=== PATIENT | female | born 1990 | race Caucasian/White ===

== ENCOUNTER → 2016-05-18 | Outpatient (CLI) | payer BC ==
[~2016-05-18] MED LIST: ALBUAER2 INH; BUDE1SUS; CETI10TA10 PO; NUTR-218; OMEG12006; OXYM0.0592 NAE; PREN1TAB29; RHNAQIN
== END | disposition home or self-care (01) ==
LOC: C.LABSPEC 13:35
PROVIDERS: ATTEND Obstetrics & Gynecology
DX: Z34.03 Encounter for supervision of normal first pregnancy, third trimester (principal)

== ENCOUNTER 2016-06-20 18:57 | Inpatient (IN) | payer BC ==
[~2016-06-20] VITALS: Ht 172.7 cm; Wt 81.7 kg
[~2016-06-20 18:57] MED LIST changes: -NUTR-218; -OMEG12006; -RHNAQIN
[2016-06-20] MEDS ORDERED: LACTATED RINGER'S 1000ML 1,000 ML IV PRN (19:37)
[2016-06-20] MEDS ORDERED: ALBUTEROL HFA 8 GM INHALER INH PRN (19:45)
[2016-06-20 20:08] LABS: HEMATOCRIT 39.6 % (37-47); MEAN CELL VOLUME 90.4 fL (80-100); MEAN CORPUSCULAR HEMOGLOBIN 32.9 pg (25-34); MEAN CORPUSCULAR HGB CONC 36.4 g/dl (32-36); MEAN PLATELET VOLUME 10.6 fL (7.4-10.4); PLATELET COUNT 133 K/uL (130-400); RED BLOOD COUNT 4.38 M/uL (4.2-5.4); WHITE BLOOD COUNT 15.12 K/uL (4.8-10.8)
[2016-06-20] MEDS ORDERED: RHNAQIN (20:19)
[2016-06-20] MEDS ORDERED: OMEG12006 (20:19)
[2016-06-20] MEDS ORDERED: NUTR-218 (20:20)
[2016-06-20 20:21] VITALS: Ht 172.7 cm; Wt 81.7 kg
[2016-06-20] MEDS: CETIRIZINE HCL 10 MG TAB PO SCH (22:28)
[2016-06-21] VITALS (8 sets, daily range): BP systolic 101–124; BP diastolic 62–78; PULSE 62–93; TEMP 36.1–36.9; O2SAT 97–100
[2016-06-21] MEDS ORDERED: LACTATED RINGER'S 1000ML 500 ML IV PRN ×2 (00:06→04:11)
[2016-06-21] MEDS ORDERED: OXYTOCIN 30 UNITS/500ML NSS IV PRN ×2 (00:15→08:15)
[2016-06-21] MEDS: LACTATED RINGER'S 1000ML 1,000 ML IV SCH ×2 (00:35→04:25)
[2016-06-21] MEDS ORDERED: BUPIVACAINE 0.25% 30 ML VIAL ONE (03:26)
[2016-06-21] MEDS ORDERED: FENTANYL CITRATE INJ 50 MCG/1 ML 2 ML VIAL ONE (03:27)
[2016-06-21] MEDS ORDERED: FENTANYL 2MCG/ML ROPIV 1.25MG/ML 100ML BAG EPI ONE (03:27)
[2016-06-21] MEDS ORDERED: EpHEDrine SULFATE INJ 50 MG/ML AMP ONE (03:27)
[2016-06-21] MEDS ORDERED: NALBUPHINE HCL INJ 10 MG/ML AMP IV PRN (04:15)
[2016-06-21] MEDS ORDERED: FENTANYL 2MCG/ML ROPIV 1.25MG/ML 100ML BAG EPI PRN (04:15)
[2016-06-21] MEDS ORDERED: DiphenhydrAMINE HCL 50 MG/ML VIAL IV PRN (04:15)
[2016-06-21] MEDS ORDERED: NALOXONE HCL INJ 0.4 MG/1 ML VIAL/CARP IV PRN (04:15)
[2016-06-21] MEDS ORDERED: EpHEDrine SULFATE INJ 50 MG/ML AMP IV PRN (04:15)
[2016-06-21] MEDS ORDERED: ONDANSETRON INJ 2 MG/ML 2 ML VIAL IV PRN (04:15)
[2016-06-21] MEDS ORDERED: IBUPROFEN 600 MG TAB PO PRN (08:15)
[2016-06-21] MEDS ORDERED: LANOLIN OINT EXT PRN ×2 (08:15)
[2016-06-21] MEDS ORDERED: ACETAMINOPHEN 325 MG TAB PO PRN (08:15)
[2016-06-21] MEDS ORDERED: BENZOCAINE 20% AER SPR 82.5 GM CAN EXT PRN (08:15)
[2016-06-21] MEDS ORDERED: SUPERCREAM 0.870 % 15GM JAR EXT PRN (08:15)
--- NOTE | 2016-06-21 08:32 | Medical Student: [facility] ---
Medical Student Delivery Note Pre-delivery diagnosis: -26 year old , 41 weeks GA Post-delivery diagnosis: -same Procedure: Spontaneous vaginal delivery of viable male Estimated blood loss: 350mls Finding: viable male , apgars 8&9, weight pending Description of delivery: Pt arrived to the hospital after rupture of membranes. Oxytocin was started because of failure to progress. She pushed for 20 minutes around 5:30AM before resting. At 6:30AM she began pushing again and was having stronger contractions. Notably, normal baseline with accelerations and occasional variable decelerations noted on external monitoring consistent with intermittent umbilical cord compression. She progressed to rapid labor at approximately 7:30AM. Dr. Ledbetter and Dr. Renee were both present at this time. With pushing she spontaneously delivered a viable male vaginally. The was in the left occiput anterior position. After the head was delivered , one nuchal cord was noted and reduced. Next, the anterior shoulder was delivered. The body was delivered. The baby was dried and subsequently placed on the mother's chest. A spontaneous cry was heard. The cord was doubly clamped and cut by the father of the baby for possible cord gas after approximately 1 minute post delivery. Cord blood was collected. The placenta was then delivered spontaneously with gentle traction by Dr. Renee. It was intact and 2 umbilical arteries and 1 umbilical vein were observed. Upon palpation the uterus was firm. Next, the perineum, vagina, and cervix were inspected for any tears. There were no lacerations. Lastly, sponges and instruments counted and correct at the end of delivery.
--- NOTE | 2016-06-21 09:05 | Anesthesia Procedure Note ---
Anesthesia Epidural Removal Nt Date & Time Jun 21, 2016 at 09:06 Vital Signs Pain Intensity: 0.0 Notes Mental Status: alert / awake / arousable, participated in evaluation Nausea / Vomiting: adequately controlled Pain: adequately controlled Airway Patency, RR, SpO2: stable & adequate BP & HR: stable & adequate Hydration State: stable & adequate Neuraxial Anesthesia: was administered Anesthetic Complications: no major complications apparent, pt satisfied with anesthetic care Epidural: removed without complications, with tip intact
--- NOTE | 2016-06-21 11:20 | DELIVERY SUMMARY ---
DATE OF OPERATION: 06/21/2016 The patient is a 26-year-old 1, P0 white female who presented at 41 weeks with spontaneous rupture of membranes. She did not progress into spontaneous labor pattern. Pitocin augmentation was begun. She received epidural analgesia and which was effective. She then pushed effectively over intact perineum for delivery of a viable male whose nuchal cord was reduced at the time of delivery with spontaneous crying and active movement of all four limbs of the infant. Cord was clamped and cut. The placenta was expressed intact with a 3-vessel cord. Post-delivery bleeding was controlled with dilute Pitocin. There were superficial abrasions on both labia, otherwise the perineum was intact. Estimated blood loss was 250 cc. Mother and infant were doing well after delivery. I attest to the content of the Intraoperative Record and any orders documented therein. Any exceptio ns are noted below.
[2016-06-21] MEDS ORDERED: DiphenhydrAMINE INJ 25 MG in SYRINGE 0 ML IV STA (16:56)
[2016-06-21] MEDS ORDERED: DiphenhydrAMINE HCL 50 MG/ML VIAL ONE (16:57)
--- NOTE | 2016-06-21 17:11 | OB/GYN Progress Note ---
LAND LEASE INFORMATION CLERK Progress Note Date of Service Jun 21, 2016. Subjective conversation w/ patient, physical exam Notes: Patient started experiencing puffiness underneath her eyes, increased tear production, itchy eyes and mild throat itchiness 40 minutes after receiving dose of ibuprofen. She has never had a similar reaction in the past to ibuprofen. Review of Systems Constitutional: No chills, No fever Respiratory: No cough, No shortness of breath, No wheezing Cardiac: No chest pain, No palpitations Objective Physical Exam General Appearance: NO APPARENT DISTRESS, uncomfortable Respiratory/Chest: lungs clear, normal breath sounds, no respiratory distress ENT: throat clear, trachea midline, no lymphadenopathy, puffy underneath eyes with clear tear production bilaterally Laboratory Results Last 24 Hours Test 06/20/16 19:52 White Blood Count 15.12 K/uL Red Blood Count 4.38 M/uL Hemoglobin 14.4 g/dL Hematocrit 39.6 % Mean Corpuscular Volume 90.4 fL Mean Corpuscular Hemoglobin 32.9 pg Mean Corpuscular Hemoglobin Concent 36.4 g/dl RDW Standard Deviation 41.6 fL RDW Coefficient of Variation 12.6 % Platelet Count 133 K/uL Mean Platelet Volume 10.6 fL Assessment and Plan Post- Day Number: Day of delivery Continue Routine Care: Patient with increased eye swelling, tear production and throat itchiness after receiving ibuprofen. She is saturating well at room air, is hemodynamically stable and is in no respiratory distress. We will give patient IV Benadryl and re-evaluate after treatment. Resident Physician Supervision Note: I was present with Dr. Renee during the history and exam. I discussed the case with the resident and agree with the findings and plan as documented in the note. Any exceptions or clarifications are listed here: Agree with Dr Renee's note. Patient had rec'd ibuprofen, 40 minutes later had swelling of bilateral eyes and slight itchiness in throat. Breathing fine, feeling fine otherwise. Vitals normal. Benadryl 25mg IV given stat. Will continue to monitor. Patient tells me she has used ibuprofen in the past without problem - has not eaten any foods recently out of the ordinary or taken any other medications. Documented By: Romelia Novak
[2016-06-21] MEDS ORDERED: DiphenhydrAMINE HCL 50 MG/ML VIAL IV SCH (17:15)
[2016-06-21] MEDS: DOCUSATE SODIUM 100 MG CAP PO SCH (19:31)
[2016-06-21] MEDS: CETIRIZINE HCL 10 MG TAB PO SCH (19:32)
[2016-06-22 03:20] VITALS: BP 105/67; PULSE 79; TEMP 36.4
--- NOTE | 2016-06-22 06:50 | Progress Note ---
Subjective Jun 22, 2016. Subjective conversation w/ patient, physical exam Ambulation: ambulating normally Voiding: no voiding problems Passing Gas: Yes Diet Tolerance: Regular Diet Lochia: Small Feeding Type: Breast Feeding Comment: Patient had episode of eye puffiness/itchiness and throat itchiness after receiving ibuprofen yesterday. This resolved after receiving a dose of IV benadryl. Review of Systems Constitutional: No chills, No fever Respiratory: No cough, No shortness of breath Cardiac: No chest pain, No palpitations Abdomen: No nausea, No pain, No vomiting Objective Vital Signs Date Time Temp Pulse Resp B/P Pulse Ox O2 Delivery O2 Flow Rate FiO2 06/22/16 03:20 36.4 79 18 105/67 Room Air 06/21/16 23:00 36.6 93 20 101/62 Room Air 06/21/16 23:00 Room Air 06/21/16 19:31 73 18 107/69 Room Air 06/21/16 18:00 80 16 108/64 100 Room Air 06/21/16 17:30 36.1 64 16 110/64 99 06/21/16 17:10 62 21 104/68 100 06/21/16 16:52 36.9 81 16 124/78 100 Room Air 06/21/16 16:10 100 Room Air 06/21/16 16:10 36.7 76 16 108/71 100 Room Air 06/21/16 11:30 97 Room Air 06/21/16 11:30 36.6 88 16 113/72 97 Room Air Physical Exam General Appearance: WELL-APPEARING, NO APPARENT DISTRESS Respiratory/Chest: lungs clear Cardiovascular: regular rate, rhythm, no murmur Abdomen: non tender, soft Fundus: Firm, Non-Tender, Relation to Umbilicus (3 cm below umbilicus) Extremities: non-tender, no calf tenderness Assessment and Plan Post- Day#: 1 Continue Routine Care: s/p Day 1 - vital signs reviewed and wnl - blood type: B+, GBS-, rubella immune - Encourage ambulation, monitor lochia and encourage breast feeding - Patient feeling better after receiving IV benadryl yesterday - Patient doing well clinically - CONTINUE ROUTINE POST CARE Resident Physician Supervision Note: I was present with Dr. Renee during the history and exam. I discussed the case with the resident and agree with the findings and plan as documented in the note. Any exceptions or clarifications are listed here: PPD#1 doing well. Much improvement of eyes after IV benadryl yesterday. Continue routine care, plan discharge tomorrow. Documented By: Romelia Novak
[2016-06-22 07:05] VITALS: BP 96/61; PULSE 69; TEMP 36.4; O2SAT 97
--- NOTE | 2016-06-22 07:15 | Medical Student: [facility] ---
Medical Student Progress Note Date of Service Jun 22, 2016. Progress Note Subjective: 26 year old white female s/p vaginal delivery of viable male yesterday. At this time, she is sitting comfortably in her room with her and . She is breast feeding exclusively. Reports no pain. She has no concerns. She is ambulating to the bathroom in order to void. Passing gas and eating a normal diet. Mild lochia and discharge without foul smell, no large clots. was uncomplicated and resulted in viable male . Denies CP , SOB, lightheadedness, dizziness. The patient's blood type is B+ and antibody screen was negative. She is rubella immune, and GBS was negative. She did have bilateral orbital edema yesterday after ibuprofen post which improved with IV Benadryl. Objective: Vitals: T 36.4, P 79, 105/67 General: sitting comfortably in bed, NAD Eyes: No edema, no erythema Heart: normal S1 and S2, no murmurs, no gallops, no rubs Lungs: clear to auscultation, no wheezing, no rales, no rhonchi Abdo: firm non-tender uterus 2-3cm below umbilicus, bowel sounds present, mild TTP Extremities: no edema, no erythema, no tenderness Assessment/Plan: 26 year old white female s/p vaginal delivery of viable male infant yesterday. Vitals stable and within normal limits. Blood type B+. GBS negative. Rubella immune. Doing well clinically without complaints. Continue to encourage ambulation. Tolerating PO diet and fluids. Pain is well controlled. Counseled on avoiding ibuprofen in the future by Dr. Novak. Routine post care.
[2016-06-22] MEDS: PRENATAL VITAMIN TAB PO SCH (08:25)
[2016-06-22] MEDS: DOCUSATE SODIUM 100 MG CAP PO SCH ×2 (08:25→19:57)
[2016-06-22 15:00] VITALS: BP 105/61; PULSE 89; TEMP 36.5; O2SAT 99
[2016-06-22] MEDS: CETIRIZINE HCL 10 MG TAB PO SCH (21:52)
[2016-06-22 23:35] VITALS: BP 102/58; PULSE 87; TEMP 36.5; O2SAT 98
--- NOTE | 2016-06-23 06:33 | Medical Student: [facility] ---
Medical Student Progress Note Date of Service Jun 23, 2016. Progress Note Subjective: 26 year old white female s/p vaginal delivery 2 days ago, producing a viable male . At this time, she is sitting comfortably in her room with her and . She is breast feeding exclusively and reports moderate improvement compared to yesterday. Reports no pain. She has no concerns other than little sleep last night due to frequent feedings. She is ambulating to the bathroom in order to void. Passing gas and eating a normal diet. Her last bowel movement was 2 days ago. Mild lochia and discharge without foul smell, no large clots. Continues to deny CP, SOB, lightheadedness, dizziness. No new edema since IV Benadryl for suspect ibuprofen allergy following . Objective: Vitals: T 36.5, P 87, RR 18, 102/58, 98% RA General: sitting comfortably in bed, NAD Eyes: No edema, no erythema Heart: normal S1 and S2, no murmurs, no gallops, no rubs Lungs: clear to auscultation, no wheezing, no rales, no rhonchi Abdo: firm non-tender uterus 2-3cm below umbilicus, bowel sounds present, mild TTP Extremities: no edema, no erythema, no tenderness Assessment/Plan: 26 year old white female s/p vaginal delivery of viable male infant 2 days ago. Vitals stable and within normal limits. Doing well clinically without complaints. Continue to encourage ambulation. Pain is well controlled. Routine post care until discharge.
--- NOTE | 2016-06-23 06:53 | Discharge Instructions ---
Discharge Instructions Date of Service Jun 23, 2016. Admission Reason for Admission: Check Rupture Discharge Discharge Diagnosis / Problem: Spontaneous Vaginal Delivery Discharge Goals Goal(s): Routine recovery after delivery Medications Continue Dispensed Medications: supercream, dermaplast, tucks, lansinoh Activity Recommendations Activity Limitations: per Instructions/Follow-up section . Instructions / Follow-Up Instructions / Follow-Up ACTIVITY RECOMMENDATIONS: * Gradual return to full activity over the next 2-3 weeks. * No lifting - nothing heavier than baby over the next 2-3 weeks. * Do not engage in vigorous exercise, sexual activity or sports until cleared by your physician. * Do not drive or operate any motorized equipment until cleared by your physician. * You may shower/bathe daily. MEDICATIONS: For discomfort or pain, you may use Acetaminophen (Tylenol), Ibuprofen (Advil), or Naproxen (Aleve) following the package directions. For constipation you may use Colace following the package directions. BREAST CARE: If you are not breast feeding: * Wear a supportive bra 24 hours a day for one to two weeks. * Avoid stimulating your breasts and nipples as much as possible during the first few weeks after delivery. * When taking a shower, have the warm water hit your back, not breasts. * When your breasts feel full, apply ice packs. Usually three to four times a day helps ease the discomfort. * Take a mild pain medication (Tylenol / Motrin) when you are uncomfortable. If breast feeding: * Use breast milk to lubricate nipples. Lansinoh cream may be used for sore nipples. You do not need to remove cream prior to breast feeding. If using a different brand of cream, check the label for directions regarding removal of cream prior to nursing. * Wear a supportive bra. * If having problems with breasts or breast feeding, call a [employer] portal consultant or your health care provider. EPISIOTOMY CARE: After delivery, if you have an episiotomy (stitches), the following steps will ease discomfort and aid healing. * For the first 24 hours after delivery, place ice packs next to your episiotomy to help reduce swelling. * After the first 24 hour-period, sitz baths, either portable or in the tub, are suggested. A shower with a shower arm sprayed over the episiotomy may be comforting. * Melida care should be done after each voiding and bowel movement. Squirt warm water from a plastic bottle over the perineum (region of the body between the anus and urinary opening) and pat dry. * Use Dermoplast to ease discomfort. Shake container. [place] directly over the episiotomy. Place a Tucks on a clean sanitary pad next to your episiotomy. SPECIAL CARE INSTRUCTIONS: When you are discharged from the hospital, it is important for you to follow the instructions listed below: * During the first week at home, you should be able to care for yourself and your baby. In addition, the usual light household activities are encouraged. * Limit your activities to the way you feel. Do not try to clean the house or move furniture. Be sensible. * If you actively engage in sports and have done so up until the time of your delivery, you may resume these activities as soon as you feel able. This may take up to one month or even longer. Use good judgment. * Continue to take your vitamins for at least six weeks after the of your baby. * Your diet need not be limited unless you were on a special diet before your delivery. Breast-feeding mothers need around 2500 calories per day and at least 64-80 ounces of fluid per day (8 to 10 glasses). * You should eat foods from the four major food groups. Crash diets or fad diets are to be avoided. Eating lean meats, fresh fruits and vegetables, low-fat dairy products, high fiber foods and a regular exercise program, will help you get back to your pre- weight without putting your health at risk. * Constipation is sometimes a problem after delivery. Take a mild laxative as needed. If breast feeding, Milk of Magnesia is acceptable to use. You may use a suppository or Fleets enema if no episiotomy. * A daily shower or tub bath is suggested. Be sure to thoroughly and gently dry the perineum. * A bloody vaginal discharge will usually continue until around four weeks post . A small amount of bleeding may continue for as long as six weeks. Vaginal discharge changes from the bright red bleeding after delivery to pink then brownish and finally yellowish-pink before becoming white and disappearing. * Bleeding may increase with activity. Your first period may come in 4-8 weeks. If you are breast feeding, your period may be delayed even longer. * Cool (sex) can begin whenever both you and your partner feel comfortable and do not have any form of genital infection. It is recommended that you wait at least six weeks for internal and external healing to occur. If you have questions, please talk to your health care practitioner. A condom should be used to prevent infection and . * Foreplay, gentle intercourse and lubrication is very important the first several times to prevent pain. A water-based lubricant such as K-Y jelly or Astroglide may be used. * If you have RH negative blood and your baby is RH positive, you will receive RHOGAM by injection prior to discharge. The nurse will give you a card to keep with you that has the date and place that you received RHOGAM after delivery. * During your care, you had a Rubella screen done to check for the presence of rubella antibodies in your blood. If your test was negative, you will receive a Rubella vaccine prior to discharge. This vaccine may cause a fever, soreness at the injection site and flu-like symptoms. If these symptoms persist, notify your health care practitioner. is not advised for one month after a Rubella vaccine. * Verbalizes understanding of car seat law as reviewed with patient nursing. * Car Seat hand-out given and reviewed with patient by nursing. * Shaken baby information reviewed with patient by nursing. Call you doctor if: * Heavy bleeding (saturating several pads an hour) or passing clots the size of your fist. * A fever >101 degrees F (38.3 degrees C) on two occasions four hours apart and /or chills. * Unusual pain in the pelvic or vaginal areas. * "Baby Blues" lasting longer than two weeks. If you have any questions or concerns, call your health care practitioner at . FOLLOW UP VISIT: * Please call the office at to schedule a 6 week examination. It is important you keep this appointment. It is important for you to make arrangements for either yearly or twice yearly check-ups thereafter. Current Hospital Diet Patient's current hospital diet: Regular OB Diet Discharge Diet Recommended Diet: Regular OB Diet Pending Studies Studies pending at discharge: no Medical Emergencies . Who to Call and When: Medical Emergencies: If at any time you feel your situation is an emergency, please call 911 immediately. . Non-Emergent Contact Non-Emergency issues call your: Primary Care Provider, Strap Stitcher . . "Provider Documentation" section prepared by Trever Renee. VTE Core Measure Inpt VTE Proph given/why not?: Treatment not indicated
--- NOTE | 2016-06-23 07:11 | Progress Note ---
Subjective Jun 23, 2016. Subjective conversation w/ patient, physical exam Ambulation: ambulating normally Voiding: no voiding problems Passing Gas: Yes Diet Tolerance: Regular Diet Lochia: Small Feeding Type: Breast Feeding Review of Systems Constitutional: No chills, No fever Respiratory: No shortness of breath Cardiac: No chest pain Objective Vital Signs Date Time Temp Pulse Resp B/P Pulse Ox O2 Delivery O2 Flow Rate FiO2 06/22/16 23:35 36.5 87 18 102/58 98 Room Air 06/22/16 23:35 98 Room Air 06/22/16 15:00 99 Room Air 06/22/16 15:00 36.5 89 18 105/61 99 Room Air 06/22/16 07:55 Room Air 06/22/16 07:05 36.4 69 18 96/61 97 Room Air Physical Exam General Appearance: WELL-APPEARING, NO APPARENT DISTRESS Respiratory/Chest: lungs clear, no respiratory distress Cardiovascular: regular rate, rhythm, no murmur Fundus: Firm, Non-Tender, Relation to Umbilicus (3 cm below umbilicus) Extremities: non-tender, no calf tenderness Assessment and Plan Post- Day#: 2 Continue Routine Care: s/p Day 2 - vital signs reviewed and within normal limits - Patient doing well clinically - Encourage ambulation, monitor lochia and continue breast feeding - Blood: B+, GBS-, Rubella immune - Discharge instructions reviewed with patient - PATIENT TO BE DISCHARGED TODAY Resident Physician Supervision Note: I interviewed and examined the patient. Discussed with Dr. Renee and agree with findings and plan as documented in the note. Any exceptions or clarifications are listed here: [None] Documented By: Graciela Barry
[2016-06-23 08:30] VITALS: BP 116/71; PULSE 79; TEMP 36.4; O2SAT 99
[2016-06-23] MEDS: DOCUSATE SODIUM 100 MG CAP PO SCH (08:45)
[2016-06-23] MEDS: PRENATAL VITAMIN TAB PO SCH (08:45)
[2016-06-23 14:30] VITALS: BP_DIAS 71; PULSE 79; TEMP 36.4
--- NOTE | 2016-06-24 08:01 | EDITING REQUIRED CODING QUERY ---
CODING QUERY To promote full compliance with coding requirements relating to patient care, provider participation is requested in all cases of medical assistant per diem uncertainty. Please assist us with the question(s) below: Coding Question(s): Dr. Ledbetter, The following is documented in the operative report: The patient is a 26-year-old 1, P0 white female who presented at 41 weeks with spo ntaneous rupture of membranes. She did not progress into spontaneous labor pattern. ? Please specify if SROM was: ( ) premature rupture of membranes ( x ) NOT premature rupture of membranes ( ) Other, please explain Physician's Response(s): Thank you for your time, LOUIE Garrett, APPAREL STOCK CHECKER
--- NOTE | 2016-06-24 08:06 | EDITING REQUIRED CODING QUERY ---
CODING QUERY To promote full compliance with coding requirements relating to patient care, provider participation is requested in all cases of security systems technician uncertainty. Please assist us with the question(s) below: Coding Question(s): Dr. Novak, The following is documented in the progress note: Patient started experiencing puffiness underneath her eyes, increased tear production, it ted eyes and mild throat itchiness 40 minutes after receiving dose of ibuprofen. She has never had a similar reaction in the past to ibuprofen. Please provide an appropriate diagnosis for these symptoms: ( X ) allergic reaction to ibuprofen ( ) allergic reaction to unknown substance ( ) not an allergic reaction ( ) other, please explain Physician's Response(s): Thank you for your time, LOUIE Garrett, CHICKEN SEXER
== END 2016-06-23 15:03 | disposition home or self-care (01) | DRG 774 ==
LOC: C.OPB 18:57 → C.LD 18:57 → C.OPB 19:39 → C.OBG 06-21 11:38
PROVIDERS: ADMIT Obstetrics & Gynecology; ATTEND Obstetrics & Gynecology
PROC: 10E0XZZ Delivery of Products of Conception, External Approach (ICD-10-PCS; principal; 2016-06-21)
DX: O48.0 Post-term pregnancy (principal); O90.89 Other complications of the puerperium, not elsewhere classified; L29.8 Other pruritus; H02.849 Edema of unspecified eye, unspecified eyelid; T39.315A Adverse effect of propionic acid derivatives, initial encounter; Y92.230 Patient room in hospital as the place of occurrence of the external cause; O69.81X0 Labor and delivery complicated by cord around neck, without compression, not applicable or unspecified; O71.82 Other specified trauma to perineum and vulva; Z37.0 Single live birth; Z3A.41 41 weeks gestation of pregnancy; Z79.899 Other long term (current) drug therapy